=== PATIENT | male | born 1970 | race Caucasian/White ===

== ENCOUNTER → 2024-09-19 06:32 | Day surgery (SDC) | payer BC, SELFPAY ==
[2024-09-19 08:05] LABS: COVID-19 Antigen Negative (Negative)
== END ==
LOC: GI 06:32
PROVIDERS: ATTENDING PHYSICIAN Internal Medicine Gastroenterology
DX: Z12.11 Encounter for screening for malignant neoplasm of colon (principal); K57.30 Diverticulosis of large intestine without perforation or abscess without bleeding; K64.8 Other hemorrhoids
CPT/HCPCS: G0121; 87811